=== PATIENT | male | born 1995 | race African-American/Black ===

== ENCOUNTER 2020-10-10 19:38 | Emergency (ER) | payer MEDICAID ==
[2020-10-10 19:47] VITALS: BP 139/84
== END 2020-10-10 21:06 | disposition home or self-care (01) ==
LOC: ED 20:45
DX: F20.89 Other schizophrenia (principal); Z91.14 Patient's other noncompliance with medication regimen
CPT/HCPCS: 99284

== ENCOUNTER 2020-10-11 01:15 | Emergency (ER) | payer MEDICAID ==
[~2020-10-11] VITALS: Ht 175.3 cm; Wt 72.0 kg
[2020-10-11] MEDS ORDERED: OLANZAPINE 10 MG TABLET PO ONE (01:30)
[2020-10-11] MEDS ORDERED: OLANZAPINE 10 MG TABLET ONE (01:56)
[2020-10-11 02:02] VITALS: BP 129/71
== END 2020-10-11 02:47 ==
LOC: ED 01:38
DX: Z00.00 Encounter for general adult medical examination without abnormal findings (principal); Z72.9 Problem related to lifestyle, unspecified; F20.9 Schizophrenia, unspecified
CPT/HCPCS: 99283

== ENCOUNTER 2020-11-24 00:57 | Emergency (ER) | payer MEDICAID ==
[~2020-11-24] VITALS: Ht 170.2 cm; Wt 77.7 kg
--- NOTE | 2020-11-24 01:13 | NUR ---
PT BIBA FOR ALCOHOL INTOXICATION, PT WAKES UP TO VERBAL STIMULI AND PAINFUL STIMULI, PT ANSWERS QUESTIONS APPROPRIATELY, PT SLEEPING FROM BEING INTOXICATED, HAS HAS 20G IN HIS RIGHT AC FROM EMS, EMS GAVE ZOFRAN AND HAS FLUIDS RUNNING UPON ARRIVAL, PT NAD AT THIS TIME
[2020-11-24] MEDS ORDERED: THIAMINE 100MG TABLET PO ONE (01:30)
[2020-11-24] MEDS ORDERED: ONDANSETRON ODT 4 MG PO ONE (01:30)
--- NOTE | 2020-11-24 01:57 | NUR ---
[facility] [phone]
--- NOTE | 2020-11-24 02:11 | NUR ---
PT ASLEEP IN BED, ALL NEEDS IN REACH, CALL LIGHT IN REACH, NAD AT THIS TIME, VSS
[2020-11-24] MEDS ORDERED: SODIUM CHLORIDE 0.9% 1,000ML IVBOLUS ONE (02:30)
[2020-11-24] MEDS ORDERED: THIAMINE 100MG TABLET ONE (04:37)
--- NOTE | 2020-11-24 04:41 | NUR ---
pt sleeping in bed, all needs in reach, call lihgt in reach, NAD, VSS
[2020-11-24 05:45] VITALS: BP 114/64
== END 2020-11-24 05:48 | disposition home or self-care (01) ==
LOC: ED 02:31
DX: F10.220 Alcohol dependence with intoxication, uncomplicated (principal); Z72.9 Problem related to lifestyle, unspecified; R11.10 Vomiting, unspecified; Y90.0 Blood alcohol level of less than 20 mg/100 ml
CPT/HCPCS: 96360; 99283; J7030